=== PATIENT | male | born 1990 | race Caucasian/White ===

== ENCOUNTER 2016-08-21 15:25 | Emergency (ER) | payer SELFPAY ==
--- NOTE | 2016-08-21 15:52 | Emergency Department Record ---
History of Present Illness - General Chief Complaint: Headache Migraine Stated Complaint: GOLD Time Seen by Provider: 08/21/16 15:38 Source: Patient Mode of Arrival: Ambulatory - History of Present Illness Initial Comments: The patient states he developed a 10/10 headache after intercourse with his last Tuesday08-16-16. The headache resolved completely by 2 p.m. the next day. He was fine Tuesday and Tuesday until he had intercourse at 11:30, and the headache returned to 8/10 so that he had to stop intercourse. It then resolved. Night before last evening he wondered if it would return again if he had sex, so he masturbated, had an orgasm, and did not get the headache. His made him come in to get checked because it happened again last evening. He currently has a 5/10 severity frontal headache, with no stiff neck, vision changes, slurred speech or other symptoms. He was able to go to work today, but has been tired as he got only 2 hours of sleep. MD Complaint: Headache Onset/Timin -: Days(s) Onset Description: Sudden Location: Frontal, Right Severity: Mild Severity scale (1-10): 5 Quality: Throbbing Consistency: Intermittent Improves With: Cold therapy, Medication Worsens With: None Treatments Prior to Arrival: Ibuprofen - Related Data Home Medications Medication Instructions Recorded Confirmed Last Taken No Home Med [NO HOME MEDS] 08/21/16 08/21/16 Unknown Allergies Allergy/AdvReac Type Severity Reaction Status Date / Time polymyxin B Allergy Intermediate BLISTERS Verified 08/21/16 15:34 [From Cortisporin] polymyxin B sulfate Allergy Intermediate BLISTERS Verified 08/21/16 15:34 [From Cortisporin] Travel Screening - Travel/Exposure Within Last 30 Days Have you traveled within the last 30 days?: No Review of Systems Reviewed: No additional complaints except as noted below Constitutional: Reports: As per HPI. Denies: Chills, Fever, Malaise, Night sweats, Weakness, Weight change Eyes: Reports: As per HPI. Denies: Eye discharge, Eye pain, Photophobia, Vision change ENT: Reports: As per HPI. Denies: Congestion, Dental pain, Ear pain, Epistaxis , Hearing loss, Throat pain Respiratory: Reports: As per HPI. Denies: Cough, Dyspnea, Hemoptysis, Stridor, Wheezes Cardiovascular: Reports: As per HPI. Denies: Arrhythmia, Chest pain, Dyspnea on exertion, Edema, Murmurs, Orthopnea, Palpitations, Paroxysmal nocturnal dyspnea, Rheumatic Fever, Syncope Endocrine: Reports: As per HPI. Denies: Fatigue, Heat or cold intolerance, Polydipsia, Polyuria Gastrointestinal: Reports: As per HPI. Denies: Abdominal pain, Constipation, Diarrhea, Hematemesis, Hematochezia, Melena, Nausea, Vomiting Genitourinary: Reports: As per HPI. Denies: Dysuria, Frequency, Hematuria, Incontinence, Retention, Testicular pain, Testicular mass, Urgency Musculoskeletal: Reports: As per HPI. Denies: Arthralgia, Back pain, Gout, Joint swelling, Myalgia, Neck pain Skin: Reports: As per HPI. Denies: Bruising, Change in color, Change in hair/ nails, Lesions, Pruritus, Rash Neurological: Reports: As per HPI. Denies: Abnormal gait, Confusion, Headache, Numbness, Paresthesias, Seizure, Tingling, Tremors, Vertigo, Weakness Psychiatric: Reports: As per HPI. Denies: Anxiety, Auditory hallucinations, Depression, Homicidal thoughts, Suicidal thoughts, Visual hallucinations Hematological/Lymphatic: Reports: As per HPI. Denies: Anemia, Blood Clots, Easy bleeding, Easy bruising, Swollen glands Past Medical History - SOCIAL HISTORY Smoking Status: Never smoker Alcohol Use: Occassional Drug Use: None - RESPIRATORY Hx Respiratory Disorders: Yes Hx Bronchitis: Yes (current) - CARDIOVASCULAR Hx Cardio Disorders: No - NEURO Hx Neuro Disorders: No - GI Hx GI Disorders: No - Hx Genitourinary Disorders: No - ENDOCRINE Hx Endocrine Disorders: No Hx Diabetes: (borderline) - MUSCULOSKELETAL Hx Musculoskeletal Disorders: Yes Hx Back Injury: Yes - PSYCH Hx Psych Problems: No - HEMATOLOGY/ONCOLOGY Hx Hematology/Oncology Disorders: No Family Medical History Any Significant Family History?: Yes Hx Anxiety: Mother Hx Cancer: Mother Hx Diabetes: Mother Hx Heart Disease: Mother Hx Kidney Disease: Mother Hx Resp Disorders: Mother Hx Seizures: Brother/Sister Physical Exam - General General Appearance: Alert, Oriented x3, Cooperative, No acute distress - Head Head exam: Normal inspection - Eye Eye exam: Normal appearance, PERRL, EOMI. negative: Conjunctival injection, Nystagmus, Scleral icterus Pupils: Normal accommodation, Other (all visual wright intact, no diplopia,) - ENT ENT exam: Normal exam, Mucous membranes moist, Normal external ear exam, Normal orophraynx, TM's normal bilaterally Ear exam: Normal external inspection. negative: External canal tenderness Nasal Exam: Normal inspection. negative: Discharge, Sinus tenderness Mouth exam: Normal external inspection, Tongue normal Teeth exam: Normal inspection. negative: Dental caries Throat exam: Normal inspection. negative: Tonsillar erythema, Tonsillar exudate - Neck Neck exam: Normal inspection, Full ROM, Other (no nuchal rigidity, flexes chin to chest easily, all symptoms in frontal aspect of head and forehead.). negative: Lymphadenopathy, Meningismus, Tenderness - Respiratory Respiratory exam: Normal lung sounds bilaterally. negative: Respiratory distress - Cardiovascular Cardiovascular Exam: Regular rate, Normal rhythm, Normal heart sounds - GI/Abdominal GI/Abdominal exam: Soft, Normal bowel sounds. negative: Tenderness - Rectal Rectal exam: Deferred - exam: Deferred - Extremities Extremities exam: Normal inspection, Full ROM, Normal capillary refill. negative: Tenderness - Back Back exam: Reports: Normal inspection, Full ROM. Denies: Muscle spasm, Rash noted, Tenderness - Neurological Neurological exam: Alert, CN II-XII intact, Normal gait, Oriented X3, Reflexes normal - Psychiatric Psychiatric exam: Normal affect, Normal mood - Skin Skin exam: Dry, Intact, Normal color, Warm Course Vital Signs 08/21/16 15:29 Temperature 97.6 F Pulse Rate 88 Respiratory 20 Rate Blood Pressure 146/83 Pulse Ox 97 - Reevaluation(s) Reevaluation #1: Patient reports that no family members have had aneurysms to his knowledge. He states both he and his father do have a tendency to suddenly fall asleep at the wheel if driving for any length of time. 08/21/16 16:26 Reevaluation #2: 08/21/16 18:57 PROCEDURE: Patient was set upright leaning over a tray table on a pillow. Lumbar area prepped, draped in sterile fashion, 4cc lido no epi injected to skin locally, continuous biox, dilaudid 0.5 mg IV given. Ist attempt with 22G returned venous blood; second attempt second location also returned venous blood; 3rd attempt one level higher returned clear to blood-tinged spinal fluid. Only 3 tubes available, labeled in order while at bedside. CSF appears to be clearing of blood to the naked eye. Patient tolerated well. Skin cleansed and bandaid to puncture site. Biox remained normal range. Patient cleaned, railing up, given ice chips. He states his headache now is 0-1/10. Resting comfortably. Awaiting results of spinal tap. 08/21/16 19:25 Reevaluation #3: Patient is feeling better. Awaiting results of tap. alert, drinking. 08/21/16 20:06 Reevaluation #4: CSF results show RBC's decreased from 350 to 108 from tube 1 to tube 3. As this was a bloody tap RBC's are expected throughout all tubes. But they are diminishing in number as the tubes progressed in number.Patient states his headache is now a 0/10, but it has spiked to 3/10 intermittently. Patient instructed to return if he has any further problems as he has no PCP. PCP referral list given. 08/21/16 20:31 Medical Decision Making - Management Options MDM Management: No Additional Work-up Planned - Data Complexity MDM Data: Labs Ordered and/or Reviewed, X-Ray Ordered and/or Reviewed ( Noncontrast Head CT:No mass, hemorrhage or acute intracranial process. Unremarkable per radiologist.) - Lab Data Result diagrams: 08/21/16 16:30 08/21/16 16:30 Disposition Disposition: Discharge Clinical Impression: Headache Qualifiers: Headache type: unspecified Headache chronicity pattern: acute headache Intractability: not intractable Qualified Code(s): R51 - Headache Disposition: Home, Self-Care Condition: (1) Good Instructions: Acute Headache (ED) Additional Instructions: Home to bed. Do not drive. May take 50 mg benadryl for bedtime if needed. No work tomorrow, no exertion, refrain from intercourse for a week due to headache. PCP referral list. Call Tuesday for appointment and follow up. Return if worsened or needed.
[2016-08-21] MEDS ORDERED: METOCLOPRAMIDE HCL 10 MG/2 ML VIAL IVP ONE (16:22)
[2016-08-21] MEDS ORDERED: DIPHENHYDRAMINE HCL IV 50 MG/ML VIAL IVP ONE (16:22)
[2016-08-21 16:40] LABS: BASO % 0.3 % (0-6); EOS % 2.7 % (0-6); GRAN % 51.7 % (47-80); HEMATOCRIT 40.3 % (42.0-52.0); HEMOGLOBIN 13.7 gm/dl (14.0-18.0); LYMPH % 32.7 % (16-45); MEAN CELL VOLUME 89.4 fl (81-97); MEAN PLATELET VOLUME 11.4 fl (7.4-10.4); MONO % 12.6 % (0-9); PLATELET COUNT 215 K/uL (130-400); RED BLOOD COUNT 4.51 M/uL (4.40-5.70); RED CELL DISTRIBUTION WIDTH 12.9 % (11.5-14.5); WHITE BLOOD COUNT W/O DIFF 6.3 K/uL (4.2-12.2)
[2016-08-21 16:41] LABS: MEAN CORPUSCULAR HEMOGLOBIN 30.3 pg (27-33)
[2016-08-21 16:52] LABS: BLOOD UREA NITROGEN 16 mg/dL (9-20); CREATININE 0.9 mg/dL (0.66-1.25); EST GLOMERULAR FILTRATION RATE > 60 ml/min; GLUCOSE,RANDOM 111 mg/dL (70-110)
[2016-08-21 16:54] LABS: INR 0.91; PARTIAL THROMBOPLASTIN TIME 25.9 SECONDS (24.5-39.1); PROTHROMBIN TIME (PATIENT) 10.3 SECONDS (9.5-12.1)
[2016-08-21] MEDS ORDERED: HYDROMORPHONE HCL 1 MG/ML CPJ IVP ONE (18:09)
[2016-08-21] MEDS ORDERED: 0.9 % SODIUM CHLORIDE 1,000 ML BAG IV ONE (18:56)
[2016-08-21 20:15] LABS: CSF APPEARANCE CLEAR; CSF COLOR COLORLESS
[2016-08-21 22:00] LABS: CSF WBC 24 /uL
[2016-08-21 22:01] LABS: CSF RBC 146 /mm3
[2016-08-21 22:10] LABS: GRAM STAIN GRAM NEG RODS; SPECIMEN SOURCE CSF
[2016-08-21] MEDS ORDERED: VANCOMYCIN HCL 1,500 MG in 0.9 % SODIUM CHLORIDE 500ML 500 ML IVPB ONE (22:28)
[2016-08-21] MEDS ORDERED: CEFTRIAXONE SODIUM 2 GM in 0.9 % SODIUM CHLORIDE 100ML 100 ML IVPB ONE ×2 (22:28→22:59)
[2016-08-21] MEDS ORDERED: SODIUM CHLORIDE 0.9% IVPB SCH ×2 (22:30→22:45)
[2016-08-21] MEDS ORDERED: ACYCLOVIR SODIUM IVPB SCH ×2 (22:30→22:45)
--- NOTE | 2016-08-21 22:35 | Emergency Department Record ---
History of Present Illness - General Chief Complaint: Headache Migraine Stated Complaint: GOLD Time Seen by Provider: 08/21/16 15:38 Mode of Arrival: Ambulatory - History of Present Illness Onset/Timin -: Days(s) Onset Description: Sudden Location: Frontal, Right Severity: Mild Severity scale (1-10): 5 Quality: Throbbing Consistency: Intermittent Improves With: Cold therapy, Medication Worsens With: None Treatments Prior to Arrival: Ibuprofen - Related Data Home Medications Medication Instructions Recorded Confirmed Last Taken No Home Med [NO HOME MEDS] 08/21/16 08/21/16 Unknown Allergies Allergy/AdvReac Type Severity Reaction Status Date / Time polymyxin B Allergy Intermediate BLISTERS Verified 08/21/16 15:34 [From Cortisporin] polymyxin B sulfate Allergy Intermediate BLISTERS Verified 08/21/16 15:34 [From Cortisporin] Travel Screening - Travel/Exposure Within Last 30 Days Have you traveled within the last 30 days?: No Review of Systems Constitutional: Reports: As per HPI. Denies: Chills, Fever, Malaise, Night sweats, Weakness, Weight change Eyes: Reports: As per HPI. Denies: Eye discharge, Eye pain, Photophobia, Vision change ENT: Reports: As per HPI. Denies: Congestion, Dental pain, Ear pain, Epistaxis , Hearing loss, Throat pain Respiratory: Reports: As per HPI. Denies: Cough, Dyspnea, Hemoptysis, Stridor, Wheezes Cardiovascular: Reports: As per HPI. Denies: Arrhythmia, Chest pain, Dyspnea on exertion, Edema, Murmurs, Orthopnea, Palpitations, Paroxysmal nocturnal dyspnea, Rheumatic Fever, Syncope Endocrine: Reports: As per HPI. Denies: Fatigue, Heat or cold intolerance, Polydipsia, Polyuria Gastrointestinal: Reports: As per HPI. Denies: Abdominal pain, Constipation, Diarrhea, Hematemesis, Hematochezia, Melena, Nausea, Vomiting Genitourinary: Reports: As per HPI. Denies: Dysuria, Frequency, Hematuria, Incontinence, Retention, Testicular pain, Testicular mass, Urgency Musculoskeletal: Reports: As per HPI. Denies: Arthralgia, Back pain, Gout, Joint swelling, Myalgia, Neck pain Skin: Reports: As per HPI. Denies: Bruising, Change in color, Change in hair/ nails, Lesions, Pruritus, Rash Neurological: Reports: As per HPI. Denies: Abnormal gait, Confusion, Headache, Numbness, Paresthesias, Seizure, Tingling, Tremors, Vertigo, Weakness Psychiatric: Reports: As per HPI. Denies: Anxiety, Auditory hallucinations, Depression, Homicidal thoughts, Suicidal thoughts, Visual hallucinations Hematological/Lymphatic: Reports: As per HPI. Denies: Anemia, Blood Clots, Easy bleeding, Easy bruising, Swollen glands Past Medical History - SOCIAL HISTORY Smoking Status: Never smoker Alcohol Use: Occassional Drug Use: None - RESPIRATORY Hx Respiratory Disorders: Yes Hx Bronchitis: Yes (current) - CARDIOVASCULAR Hx Cardio Disorders: No - NEURO Hx Neuro Disorders: No - GI Hx GI Disorders: No - Hx Genitourinary Disorders: No - ENDOCRINE Hx Endocrine Disorders: No Hx Diabetes: (borderline) - MUSCULOSKELETAL Hx Musculoskeletal Disorders: Yes Hx Back Injury: Yes - PSYCH Hx Psych Problems: No - HEMATOLOGY/ONCOLOGY Hx Hematology/Oncology Disorders: No Family Medical History Any Significant Family History?: Yes Hx Anxiety: Mother Hx Cancer: Mother Hx Diabetes: Mother Hx Heart Disease: Mother Hx Kidney Disease: Mother Hx Resp Disorders: Mother Hx Seizures: Brother/Sister Course Vital Signs 08/21/16 08/21/16 08/21/16 15:29 18:06 18:20 Temperature 97.6 F Pulse Rate 88 Pulse Rate [ 82 60 Pulse Ox Probe] Respiratory 20 20 18 Rate Blood Pressure 146/83 Blood Pressure 133/69 [Left Arm] Pulse Ox 97 98 96 08/21/16 08/21/16 08/21/16 19:00 19:15 21:15 Temperature 98.2 F Pulse Rate Pulse Rate [ 67 62 73 Pulse Ox Probe] Respiratory 18 20 16 Rate Blood Pressure Blood Pressure 126/68 118/63 127/70 [Left Arm] Pulse Ox 96 100 96 - Reevaluation(s) Reevaluation #1: 08/21/16 22:26 Assumed care from previous provider, Cell count was performed a 2nd time by laboratory and resutled 24 WBCs, gram negative rods on gram stain. Will initiate treatment with Vancomycin, Ceftriaxone, and Acyclovir for treatment and discuss transfer with No-Doc at [facility] per patient and family choice. Reevaluation #2: 08/21/16 22:[address] Jason (ID) as well as Dr. Rodríguez, will accept admission. Ampicillin, Ceftriaxone (Cefepime is not available at [facility]) Acyclovir, and Vancomycin initiated in ED. Will await bed number for transfer. Reevaluation #3: 08/21/16 23:46 Bed number has been assigned, and the patient appears stable for transfer at this time. Medical Decision Making - Lab Data Result diagrams: 08/21/16 16:30 08/21/16 16:30 Lab Results 08/21/16 08/21/16 08/21/16 Range/Units 16:30 16:30 16:30 WBC 6.3 (4.2-12.2) K/uL RBC 4.51 (4.40-5.70) M/uL Hgb 13.7 L (14.0-18.0) gm/dl Hct 40.3 L (42.0-52.0) % MCV 89.4 (81-97) fl MCH 30.3 (27-33) pg MCHC 34.0 (32-36) g/dl RDW 12.9 (11.5-14.5) % Plt Count 215 (130-400) K/uL MPV 11.4 H (7.4-10.4) fl Gran % 51.7 (47-80) % Lymphocytes % 32.7 (16-45) % Monocytes % 12.6 H (0-9) % Eosinophils % 2.7 (0-6) % Basophils % 0.3 (0-6) % PT 10.3 (9.5-12.1) SECONDS INR 0.91 APTT 25.90 (24.5-39.1) SECONDS Sodium 138 (136-145) mmol/L Potassium 3.7 (3.5-5.1) mmol/L Chloride 108 H (98-107) mmol/L Carbon Dioxide 25.0 (22-30) mmol/L Anion Gap 5.0 L (7-16) BUN 16 (9-20) mg/dL Creatinine 0.9 (0.66-1.25) mg/dL Estimated GFR > 60 ml/min Random Glucose 111 H (70-110) mg/dL Calcium 9.3 (8.5-10.1) mg/dL CSF Appearance CSF Color CSF RBC /mm3 CSF Total WBC Counted /uL CSF Neutrophils % % CSF Lymphocytes % % CSF Glucose (40-75) mg/dL CSF Total Protein (12.0-60.0) mg/dL Gram Stain Aerobic Organism Source 08/21/16 08/21/16 08/21/16 Range/Units 18:50 18:50 18:50 WBC (4.2-12.2) K/uL RBC (4.40-5.70) M/uL Hgb (14.0-18.0) gm/dl Hct (42.0-52.0) % MCV (81-97) fl MCH (27-33) pg MCHC (32-36) g/dl RDW (11.5-14.5) % Plt Count (130-400) K/uL MPV (7.4-10.4) fl Gran % (47-80) % Lymphocytes % (16-45) % Monocytes % (0-9) % Eosinophils % (0-6) % Basophils % (0-6) % PT (9.5-12.1) SECONDS INR APTT (24.5-39.1) SECONDS Sodium (136-145) mmol/L Potassium (3.5-5.1) mmol/L Chloride (98-107) mmol/L Carbon Dioxide (22-30) mmol/L Anion Gap (7-16) BUN (9-20) mg/dL Creatinine (0.66-1.25) mg/dL Estimated GFR ml/min Random Glucose (70-110) mg/dL Calcium (8.5-10.1) mg/dL CSF Appearance Clear CSF Color Colorless CSF RBC 146 /mm3 CSF Total WBC Counted 24 /uL CSF Neutrophils % 6.0 % CSF Lymphocytes % 94.0 % CSF Glucose 70 (40-75) mg/dL CSF Total Protein 160.0 H (12.0-60.0) mg/dL Gram Stain Gram neg rods Aerobic Organism Source Csf Disposition Disposition: Transfer Clinical Impression: Meningitis Headache Qualifiers: Headache type: unspecified Headache chronicity pattern: acute headache Intractability: not intractable Qualified Code(s): R51 - Headache Disposition: Acute Care Hospital Transfer Transfer To: [facility] Reason For Transfer: Meningitis Accepting Physician: Marcos Time Discussed w/Accepting Physician: 22:53 Condition: (3) Guarded Forms: Patient Portal Access Time of Disposition: 22:53
[2016-08-21] MEDS ORDERED: SODIUM CHLORIDE 0.9% IVPB ONE (22:49)
[2016-08-21] MEDS ORDERED: CEFEPIME HCL 2 GM in 0.9 % SODIUM CHLORIDE 100ML 100 ML IVPB ONE (22:49)
[2016-08-21] MEDS ORDERED: AMPICILLIN SODIUM IVPB ONE (22:49)
[2016-08-21] MEDS ORDERED: ACYCLOVIR 200 MG CAPSULE PO ONE (22:54)
--- NOTE | 2016-08-24 14:39 | CT SCAN REPORT ---
EXAM: CT OF THE BRAIN HISTORY: HEADACHE. TECHNIQUE: CT of the brain was performed without intravenous contrast. Comparison: None. FINDINGS: The ventricles and subarachnoid spaces are unremarkable. There is no mass or mass effect. No intra or extraaxial hemorrhage. No CT evidence for large acute territorial infarct. The visualized sinuses and osseous structures are unremarkable. IMPRESSION: UNREMARKABLE HEAD CT. JOB NUMBER: [id number] MTDD
== END 2016-08-22 00:05 | disposition short-term general hospital (02) ==
LOC: ER 15:25
DX: G00.9 Bacterial meningitis, unspecified (principal)
CPT/HCPCS: 62270; 70450; 80048; 82945; 84157; 85025; 85610; 85730; 87205; 89051; 94760; 96365; 96366; 99285; J0290; J1170; J1200; J2765; J7040

== ENCOUNTER 2019-02-17 08:04 | Emergency (ER) | payer BC, MEDICAID ==
[2019-02-17] MEDS ORDERED: KETOROLAC 60 MG/2 ML VIAL IM STA (08:27)
[2019-02-17] MEDS ORDERED: ORPHENADRINE CITRATE 60MG/2ML VIAL IM ONE (08:27)
--- NOTE | 2019-02-17 08:45 | Emergency Department Record ---
History of Present Illness - General Chief Complaint: Back Pain/Injury Stated Complaint: BACK PAIN Time Seen by Provider: 02/17/19 08:16 Source: Patient, RN notes reviewed Mode of Arrival: Ambulatory - History of Present Illness Initial Comments: low back pain and more on the left side and located in the L# area bilaterally and some radiation into his calfs both and he tried flexeril at home but the medication is old. No trauma and previous back problem at 16 years old and he said it was herniated but no back surgery. Patient used to live in [place] but now lives in [place] and he is visiting. This pain started 4 days ago and progressively worse. Standing flexion to 110 degrees and he was able to stand on his toes equally. MD Complaint: Back pain Onset/Timin -: Days(s) Context: Unknown Treatments Prior to Arrival: Other medications, Other - Related Data Previous Rx's Medication Instructions Recorded Hydrocodone/Acetaminophen [[place] 1 each PO Q6HR #12 tablet 02/17/19 5-325 Tablet] Naproxen [Naprosyn] 500 mg PO BID #30 tablet 02/17/19 Tizanidine HCl [Zanaflex] 4 mg PO TID #30 capsule 02/17/19 Allergies Allergy/AdvReac Type Severity Reaction Status Date / Time polymyxin B Allergy Intermediate BLISTERS Verified 02/17/19 08:14 [From Cortisporin] polymyxin B sulfate Allergy Intermediate BLISTERS Verified 02/17/19 08:14 [From Cortisporin] Travel Screening - Travel/Exposure Within Last 30 Days Have you traveled within the last 30 days?: Yes Location Detail:: [place] - Travel/Exposure Within Last Year Have you traveled outside the [place] in the last year?: No - Additonal Travel Details Have you been exposed to anyone with a communicable illness?: No - Travel Symptoms Symptom Screening: None Review of Systems Reviewed: No additional complaints except as noted below Constitutional: Reports: As per HPI. Denies: Chills, Fever, Malaise, Night swe ats, Weakness, Weight change Eyes: Reports: As per HPI. Denies: Eye discharge, Eye pain, Photophobia, Vision change ENT: Reports: As per HPI. Denies: Congestion, Dental pain, Ear pain, Epistaxis, Hearing loss, Throat pain Respiratory: Reports: As per HPI. Denies: Cough, Dyspnea, Hemoptysis, Stridor, Wheezes Cardiovascular: Reports: As per HPI. Denies: Arrhythmia, Chest pain, Dyspnea on exertion, Edema, Murmurs, Orthopnea, Palpitations, Paroxysmal nocturnal dyspnea, Rheumatic Fever, Syncope Endocrine: Reports: As per HPI. Denies: Fatigue, Heat or cold intolerance, Polydipsia, Polyuria Gastrointestinal: Reports: As per HPI. Denies: Abdominal pain, Constipation, Diarrhea, Hematemesis, Hematochezia, Melena, Nausea, Vomiting Genitourinary: Reports: As per HPI. Denies: Dysuria, Frequency, Hematuria, Incontinence, Retention, Testicular pain, Testicular mass, Urgency Musculoskeletal: Reports: As per HPI, Back pain. Denies: Arthralgia, Gout, Joint swelling, Myalgia, Neck pain Skin: Reports: As per HPI. Denies: Bruising, Change in color, Change in hair/nails, Lesions, Pruritus, Rash Neurological: Reports: As per HPI. Denies: Abnormal gait, Confusion, Headache, Numbness, Paresthesias, Seizure, Tingling, Tremors, Vertigo, Weakness Psychiatric: Reports: As per HPI. Denies: Anxiety, Auditory hallucinations, Depression, Homicidal thoughts, Suicidal thoughts, Visual hallucinations Hematological/Lymphatic: Reports: As per HPI. Denies: Anemia, Blood Clots, Easy bleeding, Easy bruising, Swollen glands Past Medical History - SOCIAL HISTORY Smoking Status: Never smoker Alcohol Use: Occasional Drug Use: None - RESPIRATORY Hx Respiratory Disorders: Yes Hx Bronchitis: Yes (current) - CARDIOVASCULAR Hx Cardio Disorders: No - NEURO Hx Neuro Disorders: No - GI Hx GI Disorders: No - Hx Genitourinary Disorders: No - ENDOCRINE Hx Endocrine Disorders: No Hx Diabetes: (borderline) - MUSCULOSKELETAL Hx Musculoskeletal Disorders: Yes Hx Back Injury: Yes - PSYCH Hx Psych Problems: No - HEMATOLOGY/ONCOLOGY Hx Hematology/Oncology Disorders: No Family Medical History Any Significant Family History?: No Hx Anxiety: Mother Hx Cancer: Mother Hx Diabetes: Mother Hx Heart Disease: Mother Hx Kidney Disease: Mother Hx Resp Disorders: Mother Hx Seizures: Brother/Sister Physical Exam - General General Appearance: Alert, Oriented x3, Cooperative, No acute distress - Head Head exam: Normal inspection - Eye Eye exam: Normal appearance, PERRL Pupils: Normal accommodation - ENT ENT exam: Normal exam, Mucous membranes moist, Normal external ear exam, Normal orophraynx, TM's normal bilaterally Ear exam: Normal external inspection. negative: External canal tenderness Nasal Exam: Normal inspection. negative: Discharge, Sinus tenderness Mouth exam: Normal external inspection, Tongue normal Teeth exam: Normal inspection. negative: Dental caries Throat exam: Normal inspection. negative: Tonsillar erythema, Tonsillar exudate - Neck Neck exam: Normal inspection, Full ROM. negative: Tenderness - Respiratory Respiratory exam: Normal lung sounds bilaterally. negative: Respiratory distress - Cardiovascular Cardiovascular Exam: Regular rate, Normal rhythm, Normal heart sounds - GI/Abdominal GI/Abdominal exam: Soft, Normal bowel sounds. negative: Tenderness - Rectal Rectal exam: Deferred - exam: Deferred - Extremities Extremities exam: Normal inspection, Full ROM, Normal capillary refill. negative: Tenderness - Back Back exam: Reports: Normal inspection, Muscle spasm, Tenderness (lumbar pain bilateral more on the left). Denies: Rash noted - Neurological Neurological exam: Alert, Normal gait, Oriented X3, Reflexes normal - Psychiatric Psychiatric exam: Normal affect, Normal mood - Skin Skin exam: Dry, Intact, Normal color, Warm Course Vital Signs 02/17/19 02/17/19 08:07 08:16 Temperature 98.5 F Pulse Rate 90 Respiratory 16 Rate Blood Pressure 136/81 Pulse Ox 97 - Reevaluation(s) Reevaluation #1: patient's pain is much better 02/17/19 09:05 Disposition Clinical Impression: Strain of lumbar spine Qualifiers: Encounter type: initial encounter Qualified Code(s): S39.012A - Strain of muscle, fascia and tendon of lower back, initial encounter Disposition: Home, Self-Care Condition: (1) Good Instructions: Low Back Strain (ED) Additional Instructions: use heat to back three times a day zanaflex three times a day naprosyn 500 mg twice a day norco three times a day follow up with a family DR in 2-3 days Prescriptions: Hydrocodone/Acetaminophen [[place] 5-325 Tablet] 1 each PO Q6HR #12 tablet Naproxen [Naprosyn] 500 mg PO BID #30 tablet Tizanidine HCl [Zanaflex] 4 mg PO TID #30 capsule Forms: Patient Portal Access Time of Disposition: 09:01 Quality - Quality Measures Quality Measures: N/A - Blood Pressure Screening Does Patient Have Any of the Following: No Blood Pressure Classification: Pre-Hypertensive BP Reading Systolic Measurement: 136 Diastolic Measurement: 81 Screening for High Blood Pressure: < Pre-Hypertensive BP, F/U Documented > [G8950] Pre-Hypertensive Follow-up Interventions: Referral to alternative/primary care provider.
== END 2019-02-17 09:15 | disposition home or self-care (01) ==
LOC: ER 08:04
DX: S39.012A Strain of muscle, fascia and tendon of lower back, initial encounter (principal); X58.XXXA Exposure to other specified factors, initial encounter
CPT/HCPCS: 96372; 99283; 99284; J1885; J2360